=== PATIENT | male | born 1970 | race Caucasian/White ===

== ENCOUNTER 2019-04-18 10:50 | Outpatient (CLI) | payer OTHER, SELFPAY ==
--- NOTE | 2019-04-18 11:03 | MR_ITS ---
WS: [id number] MRI HEAD WITH CONTRAST TECHNIQUE: Sagittal T1, T2 axial, T2 axial FLAIR, axial susceptibility weighted imaging, axial diffus ion weighted images, and coronal T2 images were obtained. Pre and post-T1 axial and post T1 coronal i mages. ADC and FSPGR images. CLINICAL INFORMATION: HEAD INJURY, FALL, MEMORY LOSS, POST CONCUSSION SYNDROME COMPARISON: None. FINDINGS: No evidence of restricted diffusion to suggest acute ischemia. Ventricular system and basal cisterns are patent. 5 mm T2 hyperintense focus in the left parietal periventricular white matter nonspecific in a patient this age but can be seen with prior inflammatory or ischemic etiologies. No other suspic ious intracranial signal abnormalities. Brainstem is normal in appearance. Normal posterior fossa. No hemosiderin on susceptibly weighted im ages. Normal optic chiasm and pituitary infundibulum. Normal visualized dural venous sinuses. Normal cavernous sinuses and Meckel's cave. Paranasal sinuses and mastoid air cells are well aerated. Mild mucosal thickening in the ethmoid air cells. Temporal lobes and hippocampal formations are normal in appearance. MR/MR head wo/w con [id number] IMPRESSION: 1. No evidence of restricted diffusion to suggest acute ischemia. 2. Single 5 mm focus of T2 hyperintensity in the left parietal periventricular white matter nonspecific but can be seen with prior inflammatory or ischemic e tiologies. No other suspicious intracranial abnormalities. 3. No abnormal intracranial enhancement. 4. No hemosiderin on susceptibly weighted images. 5. Mild mucosal thickening in the ethmoid air cells.
== END 2019-04-18 10:51 | disposition home or self-care (01) ==
LOC: RADWPI 10:56
PROVIDERS: Family Provider Family Medicine; PCP Family Medicine; Visit Provider Nurse Practitioner Family
DX: S09.90XA Unspecified injury of head, initial encounter (principal); W19.XXXA Unspecified fall, initial encounter; R41.3 Other amnesia; F07.81 Postconcussional syndrome; G44.309 Post-traumatic headache, unspecified, not intractable
CPT/HCPCS: 70553; A9579

== ENCOUNTER 2023-04-01 00:07 | Emergency (ER) | payer OTHER, SELFPAY ==
[2023-04-01 00:13] VITALS: BP 135/94; PULSE 77; RESP 14; TEMP 37.1; O2SAT 96; BMI 31.3
--- NOTE | 2023-04-01 00:24 | ECG_ITS ---
[facility] Test Date: 2023-04-01 Pat Name: Robby Felder Department: Room: Gender: Male Department Administrator: : 1970 Requested By: Krishna Antoine Order Number: [id number] Hitesh MD: Stacey Bustamante M.D. Measurements Intervals [place] Rate: 78 P: 40 [place]: 136 QRS: 47 QRSD: 81 T: 48 QT: 359 QTc: 411 Interpretive Statements SINUS RHYTHM NONSPECIFIC T-WAVE ABNORMALITY WARNING: DATA QUALITY MAY AFFECT INTERPRETATION No previous ECG available for comparison Electronically Signed On 04-01-2023 16:30:56 GAS ENGINE OPERATOR GENERATORS by Stacey Bustamante M.D. [id number] f
--- NOTE | 2023-04-01 00:24 | XRR_ITS ---
PROCEDURE INFORMATION: Exam: XR Chest Exam date and time: 04/01/2023 12:51 AM Age: 53 years old Clinical indication: Chest wall pain; Additional info: Chest pain TECHNIQUE: Imaging protocol: Radiologic exam of the chest. Views: 1 view. COMPARISON: No relevant prior studies available. FINDINGS: Lungs: Low lung volumes. No consolidation. Pleural spaces: Unremarkable. No pleural effusion. No pneumothorax. Heart/Mediastinum: Unremarkable. No cardiomegaly. Bones/joints: Unremarkable. XR/XR chest 1V portable [id number] IMPRESSION: No evidence of active cardiopulmonary disease.
[2023-04-01 00:31] LABS: Basophils # 0.1 10^3/uL (0.0-0.1); Basophils % 0.7 %; Eosinophils # 0.3 10^3/uL (0.0-0.8); Eosinophils % 2.7 %; Hematocrit 43.9 % (37-53); Lymphocytes # 2.7 10^3/uL (0.8-4.8); Mean Corpuscular HGB Conc 34.4 g/dL (30-55); Mean Corpuscular Hemoglobin 32.5 pg (27-33); Mean Corpuscular Volume 94.6 fl (82-101); Monocytes # 1.3 10^3/uL (0.2-0.9); Monocytes % 10.5 %; Neutrophils # 8.31 10^3/uL (1.8-7.7); Neutrophils % 64.9 %; Nucleated Red Blood Cells % 0 %; Platelet Count 238 10^3/cmm (157-399); Red Blood Count 4.64 10^6/uL (3.85-5.65); Red Cell Distribution Width 13.3 % (12.1-15.1)
[2023-04-01 00:44] LABS: INR 0.99 (0.8-1.2)
--- NOTE | 2023-04-01 00:46 | W.ED.CHESTPA ---
HPI - Chest Pain General: Chief Complaint: Chest Pain Stated Complaint: left shoulder pain, chest pain Time Seen by Provider: 04/01/23 00:24 History of Present Illness: Patient comes to the ER with left anterior chest/shoulder pain that radiates to his back. Patient says started about 10 AM this morning. Patient does not know any known triggers at because it. Patient does say it hurts worse to take a big deep breath and/or move his shoulder. Patient is never had this before. Patient this medicine is fluoxetine for depression. Patient has no cardiac history. Review of Systems General: Reports: 10 or more systems reviewed and unremarkable except in HPI and below PFSH ED PFSH: Family History Denies family history of Diabetes Clotting disorder Hypertension Social History Smoking and tobacco/nicotine status: never used tobacco/nicotine Alcohol intake: unknown Substance/Drug Use: never Marital status: service: No Physical Exam Const: COMMON NORMALS: no acute distress, average body habitus, patient oriented x3, no limitations, healthy appearing, alert and well nourished HENMT: COMMON NORMALS: normocephalic, atraumatic, hearing grossly normal bilaterally, external ears normal, Normal external nose present, moist oral mucous membranes and oropharynx normal HEAD & SCALP: normocephalic and atraumatic NOSE: Normal external nose present EXTERNAL EAR: Yes external ears normal Neck/C-Spine: COMMON NORMALS: full ROM, no lymphadenopathy, supple, no meningeal signs, no JVD and Thyroid normal THYROID: Thyroid normal Chest: COMMONS NORMALS: normal inspection of the chest; negative for normal palpation of entire chest wall (Tenderness with palpation of the lateral anterior chest wall near the shoul) Resp: COMMON NORMALS: normal respiratory effort, No retractions, No use of accessory muscles and clear to auscultation bilaterally AUSCULTATION: clear to auscultation bilaterally Cardio: COMMON NORMALS: no JVD, regular rate, regular rhythm, S1 normal heart sound present, S2 normal heart sound present, No gallops present (Cardio), No clicks present (Cardio), No murmurs present (Cardio) and No rub (Cardio) RATE: regular rate RHYTHM: regular rhythm HEART SOUNDS: S1 normal heart sound present and S2 normal heart sound present GI: COMMON NORMALS: Normal to inspection, nondistended, normoactive bowel sounds present, Soft to palpation, non-tender, No hepatosplenomegaly present and no masses PALPATION: Yes Soft to palpation and Yes No hepatosplenomegaly present Extremity: NARRATIVE EXTREMITY EXAM: Tender to palpate anterior shoulder joint region. Neuro: COMMON NORMALS: patient oriented x3 SENSORIUM/ORIENTATION: Yes alert MENINGEAL SIGNS: Yes no meningeal signs Course Vital Signs: Vital signs: Vital Signs Temperature 98.7 F 04/01/23 00:13 Pulse Rate 77 04/01/23 00:13 Respiratory Rate 14 04/01/23 00:13 Blood Pressure 135/94 04/01/23 00:13 Pulse Oximetry 96 04/01/23 00:13 Oxygen Delivery Me thod Room Air 04/01/23 00:13 MDM - Chest Pain Medical Decision Making Patient presents to the ER with left shoulder/left chest pain. Pain was reproducible with palpation. With pain she was worked up in a standard chest pain fashion with serial EKGs, labs, chest x-ray, all of which was essentially benign. Patient will be discharged with left shoulder pain and left chest wall pain. Patient should follow-up with his PCP within the next 7 to 10 days for further evaluation and treatment. Differential Diagnosis Unlikely acute massive pulmonary embolism, acute respiratory failure, acute myocardial infarction, cardiac arrest or sudden cardiac Medical Records I reviewed the patient's medical records. Lab Data I reviewed the patient's lab results. 04/01/23 00:20 04/01/23 00:20 Laboratory Results WBC 12.80 10^3/uL (3.29-11.43) H 04/01/23 00:20 RBC 4.64 10^6/uL (3.85-5.65) 04/01/23 00:20 Hgb 15.10 g/dL (11.27-16.99) 04/01/23 00:20 Hct 43.9 % (37-53) 04/01/23 00:20 MCV 94.6 fl (82-101) 04/01/23 00:20 MCH 32.5 pg (27-33) 04/01/23 00:20 MCHC 34.4 g/dL (30-55) 04/01/23 00:20 RDW 13.3 % (12.1-15.1) 04/01/23 00:20 Plt Count 238 10^3/cmm (157-399) 04/01/23 00:20 MPV 10.0 fL (7.4-10.4) 04/01/23 00:20 Neut % (Auto) 64.9 % 04/01/23 00:20 Lymph % (Auto) 21.0 % 04/01/23 00:20 [place] % (Auto) 10.5 % 04/01/23 00:20 Eos % (Auto) 2.7 % 04/01/23 00:20 Baso % (Auto) 0.7 % 04/01/23 00:20 Neut # (Auto) 8.31 10^3/uL (1.8-7.7) H 04/01/23 00:20 Lymph # (Auto) 2.7 10^3/uL (0.8-4.8) 04/01/23 00:20 [place] # (Auto) 1.3 10^3/uL (0.2-0.9) H 04/01/23 00:20 Eos # (Auto) 0.3 10^3/uL (0.0-0.8) 04/01/23 00:20 Baso # (Auto) 0.1 10^3/uL (0.0-0.1) 04/01/23 00:20 Nucleated RBC % (auto) 0 % 04/01/23 00:20 Nucleated RBCs # 0.0 /100WBC 04/01/23 00:20 PT 13.40 SECONDS (12.1-14.9) 04/01/23 00:20 INR 0.99 (0.8-1.2) 04/01/23 00:20 Sodium 143 mmol/L (136-145) 04/01/23 00:20 Potassium 4.1 mmol/L (3.5-5.1) 04/01/23 00:20 Chloride 104 mmol/L (98-107) 04/01/23 00:20 Carbon Dioxide 27 mmol/L (22-29) 04/01/23 00:20 Anion Gap 16.1 (5-19) 04/01/23 00:20 BUN 15 mg/dL (6-20) 04/01/23 00:20 Creatinine 1.1 mg/dL (0.7-1.2) 04/01/23 00:20 GFR Calculation 70.0 mL/min (90-130) L 04/01/23 00:20 Glucose 103 mg/dL (65-115) 04/01/23 00:20 Calculated Osmolality 297 mOsm/kg (285-295) H 04/01/23 00:20 Calcium 10.0 mg/dL (8.5-10.5) 04/01/23 00:20 Total Bilirubin 0.6 mg/dL (0.15-1.2) 04/01/23 00:20 AST 17 U/L (0-40) 04/01/23 00:20 ALT 27 U/L (0-41) 04/01/23 00:20 Alkaline Phosphatase 76 U/L (40-130) 04/01/23 00:20 Troponin T Baseline 10 ng/L (0-15) 04/01/23 00:20 Troponin T 120 Minute 9.92 ng/L (0-15) 04/01/23 02:02 Delta Troponin T -0.08 ABS# (0-10) L 04/01/23 02:02 Total Protein 7.5 g/dL (6.6-8.7) 04/01/23 00:20 Albumin 4.8 g/dL (3.5-5.2) 04/01/23 00:20 Globulin 2.7 g/dL (1.3-4.6) 04/01/23 00:20 All radiology interpretation(s) finalized by discharge EKG Data EKG 1: I personally reviewed and interpreted this EKG as follows: EKG interpretation date: 04/01/23 EKG interpretation time: 00:20 Prior EKG tracings: not available for review Interpretation: EKG showed ventricular rate 79 bpm, AR interval 144, QRS duration 83, QTc of 412, sinus rhythm with occasional PVC, EKG 2: I personally reviewed and interpreted this EKG as follows: EKG interpretation date: 04/01/23 EKG interpretation time: 02:29 Prior EKG tracings: available for review Interpretation: EKG shows ventricular rate 72 beats minute, AR interval 144, QRS duration 86, QTc of 398, sinus rhythm, Discharge Plan Discharge Patient Disposition: Home Clinical Impression: Acute pain of left shoulder, Non-cardiac chest pain Condition: Stable Prescriptions: No Action fluoxetine 20 mg capsule 40 mg PO DAILY Discharge Orders: Discharge ED (Routine); Ordered 04/01/23 Ordered By: Krishna Antoine Referrals: Ankit Novoa MD [Primary Care Provider] - 1 week Patient Instructions: Chest Pain - Noncardiac, Shoulder Pain (ED) Activity Restrictions/Additional Instructions: Your workup in ER did not reveal a cardiac cause of your chest pain. Is felt to be more shoulder pain in nature. Your chest x-ray has not been read by radiologist but preliminary review is that is negative. If the radiologist sees anything different you may be called with a change in your treatment plan. Otherwise follow-up with your family practice physician within next 7 to 10 days for further evaluation and treatment. Coding Level of Care Code ED Mechanical Service Specialist for Huy Nichols
[2023-04-01 00:48] LABS: Troponin(5th) Baseline 10 ng/L (0-15)
[2023-04-01 00:50] LABS: Alanine Aminotransferase 27 U/L (0-41); Albumin Level 4.8 g/dL (3.5-5.2); Alkaline Phosphatase 76 U/L (40-130); Anion Gap 16.1 (5-19); Aspartate Amino Transferase 17 U/L (0-40); Blood Urea Nitrogen 15 mg/dL (6-20); Carbon Dioxide 27 mmol/L (22-29); Chloride 104 mmol/L (98-107); Globulin 2.7 g/dL (1.3-4.6); Glucose 103 mg/dL (65-115); Osmolality Calculated 297 mOsm/kg (285-295); Potassium 4.1 mmol/L (3.5-5.1); Sodium 143 mmol/L (136-145); Total Bilirubin 0.6 mg/dL (0.15-1.2); Total Protein 7.5 g/dL (6.6-8.7)
[2023-04-01 01:13] LABS: Slide Review Slide Review Perform
[2023-04-01] MEDS: ketorolac 30 mg/mL INJ IVP (02:02)
[2023-04-01 02:27] LABS: Troponin 5 2HR 9.92 ng/L (0-15); Troponin 5 2HR Delta -0.08 ABS# (0-10)
--- NOTE | 2023-04-01 02:29 | ECG_ITS ---
[facility] Test Date: 2023-04-01 Pat Name: Robby Felder Department: Room: Gender: Male Cadastral Engineer: : 1970 Requested By: Krishna Antoine Order Number: [id number] Hitesh MD: Stacey Bustamante M.D. Measurements Intervals [place] Rate: 72 P: 41 [place]: 144 QRS: 58 QRSD: 86 T: 60 QT: 373 QTc: 410 Interpretive Statements SINUS RHYTHM Compared to ECG 04/01/2023 00:17:03 T-wave abnormality no longer present Electronically Signed On 04-01-2023 16:43:03 TREATMENT MANAGER by Stacey Bustamante M.D. [id number]
== END 2023-04-01 04:29 | disposition home or self-care (01) ==
PROVIDERS: Emergency Provider Emergency Medicine; PCP Family Medicine
DX: R07.89 Other chest pain (principal); M25.512 Pain in left shoulder
CPT/HCPCS: 36415; 71045; 80053; 84484; 85025; 85610; 93005; 96374; 99285; J1885